=== PATIENT | female | born 1945 | race Caucasian/White ===

== ENCOUNTER 2018-03-23 22:00 | Emergency (ER) | END 2018-03-24 02:45 | disposition home or self-care (01) ==

== ENCOUNTER 2018-04-04 13:52 | Inpatient (IN) | END 2018-04-09 17:04 | disposition home or self-care (01) | DRG 342 ==

== ENCOUNTER 2019-03-03 16:49 | Emergency (ER) | payer MEDICARE, OTHER ==
[~2019-03-03] VITALS: Ht 165.1 cm; Wt 118.2 kg
[~2019-03-03 16:49] MED LIST: ACET500C5 PO; ASPI-535 PO; ATOR20TA17 PO; BIMA2.5D BOTH EYES; BRIM15DR7 BOTH EYES; CIPR500T4 PO; DOCU-159 PO; DULA0.75 SQ; FURO20TA3 PO; GABA-526 PO; LANT3I SC; LOSA50TA14 PO; METO-429 PO; PIOG30TA19 PO; SITA100T11 PO; SS SC; TRAZ-111 PO
[2019-03-03 16:56] VITALS: Ht 165.1 cm; Wt 118.2 kg
[2019-03-03] MEDS ORDERED: FAMOTIDINE 20 MG TAB PO STA (19:20)
[2019-03-03] MEDS ORDERED: METOCLOPRAMIDE 10 MG INJ IV STA (19:20)
[2019-03-03] MEDS ORDERED: LIDOCAINE/MYLANTA 40 ML BTL PO STA (19:20)
[2019-03-03] MEDS ORDERED: FAMO-96 PO (22:10)
[2019-03-03 22:27] VITALS: BP 133/52; PULSE 51; RESP 16
--- NOTE | 2019-03-03 22:43 | ERD ---
ER Documentation Chief Complaint Chief Complaint Pt with epigastric pain radiating to the back X 2 weeks, nausea today. HPI 73-year-old female presenting with epigastric pain radiating to her back. This is been going on continuously for the past 2 weeks but worse today with nausea and nonbloody, nonbilious vomiting. The pain is aching, pressure-like, with no alleviating or exacerbating factors. No associated cough, hemoptysis, fever, chills, diarrhea or constipation. ROS All systems reviewed and are negative except as per history of present illness. Medications Home Meds Active Scripts Famotidine* (Pepcid*) 20 Mg Tablet, 20 MG PO BID for 10 Days, TAB Prov:ANDERSON SALAZAR MD 03/03/19 Acetaminophen* (Tylophen*) 500 Mg Capsule, 500 MG PO Q6H PRN for PAIN LEVEL 6- 10, #30 TAB Prov:HORACE DELAROSA MD 04/09/18 Ciprofloxacin Hcl* (Ciprofloxacin Hcl*) 500 Mg Tablet, 500 MG PO BID for 7 Days, #14 TAB Prov:HORACE DELAROSA MD 04/09/18 Reported Medications Bimatoprost* (Lumigan*) 0.01%-2.5 Ml Opht Drops, 1 DROP BOTH EYES HS, EA 02/27/18 Brimonidine Tartrate* (Brimonidine Tartrate*) 0.2%-15ML Drop Opht, 1 DROP BOTH EYES BID, #1 EA 02/27/18 Gabapentin* (Gabapentin*) 600 Mg Tablet, 600 MG PO QHS, #60 TAB 02/27/18 Losartan Potassium* (Losartan Potassium*) 50 Mg Tablet, 50 MG PO DAILY, TAB 02/27/18 Metoprolol Tartrate* (Lopressor*) 50 Mg Tab, 50 MG PO BID, #60 TAB 02/27/18 Insulin Glargine* (Lantus*) 100 Unit/Ml Soln, 48 UNIT SC QHS, #1 VIAL 02/27/18 Insulin Human Regular (Novolin-R U-100) 100 Unit/Ml Soln, 14 UNITS SC AC MEALS, EA 02/27/18 Furosemide* (Furosemide*) 20 Mg Tablet, 20 MG PO BID, #30 TAB 02/27/18 Sitagliptin* (Januvia*) 100 Mg Tablet, 100 MG PO DAILY, #30 TAB 02/27/18 Dulaglutide (Trulicity) 0.75 Mg/0.5 Ml Pen.injctr, 0.75 MG SQ QWEEK 02/27/18 Trazodone Hcl* (Trazodone Hcl*) 50 Mg Tablet, 50 MG PO QHS, #30 TAB 02/27/18 Aspirin Ec (Aspir 81) 81 Mg Tablet.dr, 81 MG PO DAILY, #30 TAB 02/27/18 Docusate Sodium* (Docusate Sodium*) 100 Mg Capsule, 100 MG PO BID 05/25/12 Pioglitazone Hcl* (Actos*) 30 Mg Tablet, 30 MG PO DAILY 05/25/12 Atorvastatin (Lipitor) 20 Mg Tablet, 20 MG PO DAILY 05/25/12 Allergies Allergies: Coded Allergies: No Known Allergy (Unverified , 03/24/18) PMhx/Soc History of Surgery: Yes (L BreastL Mastectomy, Cholcystectomy, Left ankle Cellulitis, Hysterectomy) Anesthesia Reaction: No Hx Neurological Disorder: Yes (Nueropathy) Hx Respiratory Disorders: No Hx Cardiac Disorders: Yes (HTN, Hyperlipidemia) Hx Psychiatric Problems: No Hx Miscellaneous Medical Probl: Yes (diabetes,lupus) Hx Alcohol Use: No Hx Substance Use: No Hx Tobacco Use: No (quit 1988) Smoking Status: Former smoker FmHx Family History: No coronary disease Physical Exam Vitals Vital Signs Date Temp Pulse Resp B/P (MAP) Pulse Ox O2 O2 Flow FiO2 Time Delivery Rate 03/03/19 57 14 172/83 99 Room Air 21:04 (112) 03/03/19 60 16 174/94 99 Room Air 19:34 (120) 03/03/19 57 16 140/96 100 Room Air 19:00 (111) 03/03/19 98.1 60 19 163/87 99 Room Air 18:48 (112) 03/03/19 99.0 50 20 139/63 98 16:56 (88) Physical Exam const: No acute distress, nontoxic. Obese Head: Atraumatic Eyes: Normal Conjunctiva ENT: Normal External Ears, Nose and Mouth. Neck: Full range of motion. No meningismus. Resp: Clear to auscultation bilaterally Cardio: Regular rate and rhythm, no murmurs Abd: Soft,, moderate Epigastric tenderness to palpation. non distended. Normal bowel sounds Skin: No petechiae or rashes Back: No midline or flank tenderness Ext: No cyanosis, or edema Neur: Awake and alert Psych: Normal Mood and Affect Result Diagram: 03/03/19 1729 03/03/19 1729 Results 24 hrs Laboratory Tests Test 03/03/19 17:29 03/03/19 19:00 White Blood Count 8.6 10^3/ul Red Blood Count 3.40 10^6/ul Hemoglobin 10.7 g/dl Hematocrit 32.6 % Mean Corpuscular Volume 95.9 fl Mean Corpuscular Hemoglobin 31.5 pg Mean Corpuscular Hemoglobin Concent 32.8 g/dl Red Cell Distribution Width 14.6 % Platelet Count 99 10^3/UL Mean Platelet Volume 10.9 fl Immature Granulocytes % 0.300 % Neutrophils % 63.4 % Lymphocytes % 25.3 % Monocytes % 9.9 % Eosinophils % 0.9 % Basophils % 0.2 % Nucleated Red Blood Cells % 0.0 /100WBC Immature Granulocytes # 0.030 10^3/ul Sodium Level 140 mmol/L Potassium Level 5.2 mmol/L Chloride Level 109 mmol/L Carbon Dioxide Level 23 mmol/L Anion Gap 8 Blood Urea Nitrogen 31 mg/dl Creatinine 1.00 mg/dl Est Glomerular Filtrat Rate mL/min mL/min Glucose Level 100 mg/dl Calcium Level 8.9 mg/dl Total Bilirubin 0.6 mg/dl Direct Bilirubin 0.00 mg/dl Indirect Bilirubin 0.6 mg/dl Aspartate Amino Transf (AST/SGOT) 45 IU/L Alanine Aminotransferase (ALT/SGPT) 41 IU/L Alkaline Phosphatase 105 IU/L Troponin I < 0.012 ng/ml Total Protein 7.2 g/dl Albumin 3.7 g/dl Globulin 3.50 g/dl Albumin/Globulin Ratio 1.05 Lipase 142 U/L Urine Color YELLOW Urine Clarity SLIGHTLY CLOUDY Urine pH 5.0 Urine Specific [place] 1.006 Urine Ketones NEGATIVE mg/dL Urine Nitrite NEGATIVE mg/dL Urine Bilirubin NEGATIVE mg/dL Urine Urobilinogen NEGATIVE mg/dL Urine Leukocyte Esterase NEGATIVE [place]/ul Urine Microscopic RBC 0 /HPF Urine Microscopic WBC 1 /HPF Urine Bacteria FEW /HPF Urine Hemoglobin NEGATIVE mg/dL Urine Glucose NEGATIVE mg/dL Urine Total Protein NEGATIVE mg/dl Current Medications Medications Dose Sig/Alex Start Time Status Last (Trade) Ordered Route PRN Stop Time Admin Dose Reason Admin 10 mg ONCE STAT 03/03/19 DC 03/03/19 Metoclopramid IV 19:20 19:31 e HCl 03/03/19 19:21 (Reglan) Famotidine 20 mg ONCE STAT 03/03/19 DC 03/03/19 (Pepcid) PO 19:20 19:55 03/03/19 19:21 40 ml ONCE STAT 03/03/19 DC 03/03/19 Miscellaneous PO 19:20 19:55 Medication 03/03/19 19:21 (Gi Cocktail (2)) Procedures/MDM EMERGENT LABS AND DIAGNOSTIC STUDIES: Lab Results above were reviewed and interpreted by me. CBC: Mild anemia, thrombocytopenia, unknown etiology. CMP: Borderline hyperkalemia and BUN elevation, likely secondary to dehydration. No evidence of clinically significant electrolyte abnormality, acidosis, renal failure, hypoglycemia, liver disease, or biliary obstruction Lipase: no evidence of pancreatitis Troponin within normal limits, not indicative of cardiac ischemia UA: no evidence of infection 12-lead EKG was interpreted by Caitie Salazar MD: Sinus bradycardia with ventricular rate of 51 beats per minute Normal axis Normal intervals No acute ST or T wave changes suggestive of acute ischemia or STEMI. Radiology Results as interpreted by Radiology below were reviewed by STres Salazar MD: CT abdomen and pelvis shows no acute abnormalities Initial Nursing notes reviewed. Previous Medical Records requested via the Electronic Health Record. EMERGENCY DEPARTMENT COURSE / MEDICAL DECISION MAKING: Patient is presenting with epigastric pain for the past 2 weeks. Vitals are unremarkable. Differential includes but is not limited to pancreatitis, hepatitis, lower lobe pneumonia, gastritis, colitis, cardiac pathology, aortic dissection, ureterolithiasis, pyelonephritis. Labs were ordered to evaluate for above and were notable for chornic anemia, at her baseline, and new thrombocytopenia of uncertain etiology. She also had mild BUN elevation, however related believe this is likely secondary to dehydration and less likely due to a GI bleed. Patient is not having any symptoms of a GI bleed. CT of the abdomen/pelvis was ordered and showed no acute pathology. Patient was treated with a GI cocktail and Pepcid with significant improvement of her s ymptoms. I will be discharging her with a prescription for Pepcid. I provided her with her results from today and recommend that she speak to her primary care doctor regarding her thrombocytopenia. Strict return precautions discussed with her. All questions answered. Patient discharged with prescription for Pepcid. Patient's blood pressure was elevated (>120/80) but appears stable without evidence of hypertensive emergency or urgency. The patient was counseled about the risks of hypertension and urged to pursue outpatient monitoring and therapy within a week with their primary care physician. Departure Diagnosis: Primary Impression: Abdominal pain Abdominal location: epigastric Qualified Codes: R10.13 - Epigastric pain Additional Impression: Thrombocytopenia Condition: Stable Patient Instructions: Gastritis Vs. Ulcer, Epigastric Pain (Uncertain Cause) Referrals: DOCTOR,NOT ON STAFF (PCP) Additional Instructions: Lucille lisbeth socorro con chaves medico primario en 2-3 szymanski. Si estas empeorando, regresa a la cammie de emergencias. ANDERSON SALAZAR MD Mar 03, 2019 22:30
== END 2019-03-03 22:32 | disposition home or self-care (01) ==
LOC: E/R 16:49
DX: R10.13 Epigastric pain (principal); D69.6 Thrombocytopenia, unspecified; E11.9 Type 2 diabetes mellitus without complications; I10 Essential (primary) hypertension; Z79.4 Long term (current) use of insulin; Z79.82 Long term (current) use of aspirin
CPT/HCPCS: 74176; 80053; 81001; 83690; 84484; 85025; 93005; 96374; 99285; J2765; 81003